=== PATIENT | female | born 1930 | race Caucasian/White ===

== ENCOUNTER 2018-10-08 17:08 | Inpatient (IN) ==
[2018-10-08] MEDS ORDERED: ALBUTEROL SULFATE 2.5 MG/0.5 ML VIAL.NEB IH ONE (17:25)
--- NOTE | 2018-10-08 17:26 | ERNOTE ---
Dyspnea - Date Date of Service: 10/08/18 - General Presenting Symptoms: shortness of breath, difficulty of breathing, wheezing Time Seen by Provider: 10/08/18 17:14 Source: [facility] records Exam Limitations: dementia - Immun/Allergies/Home Medications Immunizations: IMMUNIZATION HX Immunizations Up to Date Yes History of Influenza Vaccine Yes Hx Pneumococcal Vaccination Yes Allergies/Adverse Reactions: Allergies No Known Allergies Allergy (Verified 10/08/18 19:43) per [facility] sheets Home Medications: HOME MEDICATIONS RX: Furosemide [Lasix] 80 mg PO DAILY #1 tab 01/31/15 [Last Taken Unknown] RX: Polyethylene Glycol 3350 [Miralax] 17 gm PO DAILY #0 01/31/15 [Last Taken 01/22/15 09:00 17 gm] RX: Glucagon,Human Recombinant [Glucagen] 1 mg IJ PRN PRN 05/04/15 [Last Taken Unknown] acetaminophen 325 mg tablet 650 mg PO QID PRN tab 01/20/18 [Last Taken Unknown] levothyroxine 50 mcg capsule 50 mcg PO DAILY 01/20/18 [Last Taken Unknown] potassium chloride ER 10 mEq tablet,extended release(part/cryst) 10 meq PO BID 01/20/18 [Last Taken Unknown] Albuterol Sulfate [Albuterol Sulfate 2.5 MG/0.5ML] 2.5 mg INHALATION QID 10/08/18 [Last Taken Unknown] Cefuroxime Axetil [Cefuroxime] 500 mg PO BID 10/08/18 [Last Taken Unknown] Insulin Aspart [Novolog] 8 units SC TIDWM 10/08/18 [Last Taken Unknown] Insulin Detemir [Levemir] 13 units SC BID 10/08/18 [Last Taken Unknown] Magnesium Hydroxide [Milk Of Magnesia] 30 ml PO DAILY PRN 10/08/18 [Last Taken Unknown] Menthol [Biofreeze] 1 appl TOPICAL DAILY PRN 10/08/18 [Last Taken Unknown] RX: Pantoprazole Sodium 40 mg PO 1700 10/08/18 [Last Taken Unknown] - History of Present Illness Narrative: This is an 88-year-old female from [facility]. She is brought in for increasing dyspnea. Per report the patient has had 3 days of a cough as well as wheezing and shortness of breath. She has had a fever up to 101 by report. The patient has significant dementia and is unable to give any history. It was reported that the patient's distal pulses were weak today, but her systemic blood pressure at the time was noted to be in the 90s systolic. No other information or complaints are available. There is been no vomiting or diarrhea. No reports of abdominal pain or rashes. Uncertain of immunization status. Review of Systems - Narrative Narrative: Except as above in the history of present illness, the remainder of the review of systems is unobtainable due to the patient's condition and dementia Medical History (Last Reviewed 10/08/18 @ 19:44 by Christa Muñoz RN) Essential hypertension (Chronic) Onset Date: Unknown Difficulty in walking (Acute) Onset Date: Unknown Anxiety (Chronic) Onset Date: Unknown History of falling (Chronic) Onset Date: Unknown Alzheimer disease (Chronic) Onset Date: Unknown Depression (Chronic) Onset Date: Unknown Hypokalemia (Chronic) Onset Date: Unknown Hyperlipidemia due to dietary fat intake (Chronic) Onset Date: Unknown Chronic GERD Onset Date: Unknown Dementia Onset Date: Unknown Major depressive disorder Onset Date: Unknown Osteochondropathy Onset Date: Unknown Family History: Family History (Last Updated 10/08/18 @ 19:44 by Christa Muñoz RN) Other Unknown family medical history Social History: Preferred Language Hebrew Smoking Status Never smoker Abuse History No History of abuse Psych History No pertinent hx (Last Updated 09/26/18 @ 21:20 by Chip Clayton DO) No Social History Section defined Physical Exam - Physical Exam General Appearance: Present: other - Patient is awake and confused. She is tachypneic. She has somewhat labored breathing. Head Exam: Present: normal inspection, no evidence of injury Eye Exam: Normal inspection: bilateral Ears, Nose, Throat: Present: other Neck: Present: normal inspection - Slightly dry membranes. No pharyngeal erythema., other Respiratory: Present: other - Trachea is in the midline no significant adenopathy patient is tachypneic. Increased work of breathing using accessory muscles in the neck. Diffuse wheezing with poor air entry throughout. Frequent bronchitic sounding cough. Cardiovascular/Chest: Present: regular rate, rhythm, no murmur, normal peripheral pulses, other - Patient has palpable dorsalis pedis and radial pulses bilaterally, but when I felt these pulses the patient was actually Peripheral Pulses: N=norm/S=strong/W=weak/B=bound/A=absent: Radial (R): Normal, Radial (L): Normal, Dorsalis-pedis (R): Normal, Dorsalis-pedis (L): Normal Gastrointestinal/Abdominal: Present: normal bowel sounds, nontender, nondistended, soft Back Exam: Present: normal inspection Extremity Exam: Present: normal inspection, no edema Neurological Exam: Present: other - Patient is reported to be at her baseline mental state which is confused. Eyes open spontaneously. Noted to move all extremities. Skin Exam: Present: normal color, warm/dry, other - No rashes or lesions are noted Lymphatic Exam: Present: no adenopathy Departure Clinical Impression: Acute pulmonary edema, CHF (congestive heart failure), Sepsis - Departure Disposition: Still a patient Condition: Fair
[2018-10-08 17:35] LABS: Hematocrit 37.6 % (37.0-47.0); Hemoglobin 11.8 gm/dL (12.5-16.0); Mean Cell Volume 90.8 fl (78-100); Mean Corpuscular Hemoglobin 28.5 pg (27-31); Mean Corpuscular Hgb Conc 31.4 g/dl (32-36); Mean Platelet Volume 10.1 fl (8-12.5); Neutrophil # 12.9 K/mm3 (1.3-6.0); Neutrophil % 82.1 % (42-75.0); Platelet Count 331 K/mm3 (150-450); Red Blood Count 4.14 M/mm3 (4.2-5.4); Red Cell Distribution Width 14.3 % (11.5-14.0); White Blood Count 15.7 K/mm3 (4.0-10.5)
[2018-10-08 17:56] LABS: BUN/Creatinine Ratio 27.6 (9.0-21.6); Carbon Dioxide 24.8 mmol/L (24-32.6)
[2018-10-08 17:57] LABS: Albumin * 3.2 gm/dl (3.4-5.0); Anion Gap 17.2 mmol/L (6.8-13.8); Bilirubin, Total 0.3 mg/dL (0.0-1.1); Ca. Corrected For Albumin 9.2 mg/dL (8.4-10.2); Calcium * 8.9 mg/dL (7.9-10.9); Total Protein 7.4 gm/dL (6.2-8.2); Troponin I 0.043 ng/mL (0.00-0.10)
[2018-10-08] MEDS ORDERED: FUROSEMIDE 10 MG/ML VIAL IV ONE (18:26)
[2018-10-08] MEDS ORDERED: LEVOFLOXACIN 750 MG TABLET PO ONE (18:26)
[2018-10-08] MEDS ORDERED: FUROSEMIDE 10 MG/ML VIAL ONE (18:36)
[2018-10-08] MEDS ORDERED: LEVOFLOXACIN 250 MG TABLET ONE (18:37)
[2018-10-08] MEDS: PIPERACILLIN SODIUM/TAZOBACTAM 3.375 GM in DEXTROSE 5 % IN WATER 100 ML IV SCH ×2 (18:52)
[2018-10-08] MEDS ORDERED: NORMAL SALINE 1,000 ML IV PRN (19:01)
[2018-10-08] MEDS ORDERED: ACETAMINOPHEN 325 MG TABLET PO PRN (19:14)
[2018-10-08] MEDS ORDERED: MAGNESIUM HYDROXIDE 30 ML UDC PO PRN (19:14)
[2018-10-08] MEDS ORDERED: INSULIN ASPART 100 UNITS/ML VIAL SC SCH (19:45)
[2018-10-08] MEDS ORDERED: ALBUTEROL SULFATE 2.5 MG/0.5 ML VIAL.NEB IH SCH (21:00)
[2018-10-08] MEDS ORDERED: INSULIN DETEMIR 100 UNITS/ML VIAL SC SCH (21:00)
[2018-10-08] MEDS ORDERED: INSULIN LISPRO 100 UNITS/ML VIAL SC PRN (22:44)
[2018-10-08] MEDS: ACETAMINOPHEN 325 MG TABLET PO PRN (23:00)
[2018-10-08] MEDS: INSULIN LISPRO 100 UNITS/ML VIAL SC SCH (23:04)
[2018-10-08] MEDS ORDERED: ENOXAPARIN SODIUM 40 MG/0.4 ML SYRG SC SCH (23:30)
[2018-10-08] MEDS ORDERED: ALBUTEROL SULFATE 2.5 MG/0.5 ML VIAL.NEB IH PRN (23:32)
[2018-10-09] MEDS ORDERED: FUROSEMIDE 10 MG/ML VIAL IV ONE (01:07)
[2018-10-09] MEDS ORDERED: FUROSEMIDE 10 MG/ML VIAL ONE (01:10)
[2018-10-09] MEDS: ENOXAPARIN SODIUM 40 MG/0.4 ML SYRG SC SCH ×2 (01:16→20:37)
[2018-10-09] MEDS: PIPERACILLIN SODIUM/TAZOBACTAM 3.375 GM in DEXTROSE 5 % IN WATER 100 ML IV SCH ×6 (04:01→19:38)
[2018-10-09 05:09] LABS: Urine Bilirubin Negative (NEGATIVE); Urine Blood 50 /ul (NEGATIVE); Urine Ketone Negative (NEGATIVE); Urine Nitrite Positive (NEGATIVE); Urine Protein Negative (NEGATIVE); Urine Specific Gravity 1.015 SP.GR. (1.005-1.010); Urine Urobilinogen Normal (NORMAL)
[2018-10-09 05:10] LABS: Urine Amorphous Sediment Moderate - 2+ (NONE-FEW); Urine Appearance Cloudy (CLEAR); Urine Bacteria 3+; Urine Color Yellow
[2018-10-09] MEDS: ALBUTEROL SULFATE 2.5 MG/0.5 ML VIAL.NEB IH SCH ×4 (06:05→18:21)
[2018-10-09 06:20] LABS: Hematocrit 37.7 % (37.0-47.0); Hemoglobin 11.5 gm/dL (12.5-16.0); Mean Cell Volume 91.7 fl (78-100); Mean Corpuscular Hgb Conc 30.5 g/dl (32-36); Mean Platelet Volume 10.5 fl (8-12.5); Neutrophil # 8.7 K/mm3 (1.3-6.0); Neutrophil % 79.4 % (42-75.0); Platelet Count 271 K/mm3 (150-450); Red Blood Count 4.11 M/mm3 (4.2-5.4); Red Cell Distribution Width 14.5 % (11.5-14.0); White Blood Count 10.9 K/mm3 (4.0-10.5)
[2018-10-09 06:36] LABS: Anion Gap 14.9 mmol/L (6.8-13.8); BUN/Creatinine Ratio 26.8 (9.0-21.6); Bilirubin, Total 0.4 mg/dL (0.0-1.1); Ca. Corrected For Albumin 9.5 mg/dL (8.4-10.2); Carbon Dioxide 24.2 mmol/L (24-32.6); Potassium 4.1 mmol/L (3.4-4.6); Total Protein 7.2 gm/dL (6.2-8.2)
[2018-10-09] MEDS: LEVOTHYROXINE SODIUM 50 MCG TABLET PO SCH (08:01)
[2018-10-09] MEDS: ACETAMINOPHEN 325 MG TABLET PO PRN (08:09)
[2018-10-09] MEDS: POLYETHYLENE GLYCOL 3350 17 GM PACKET PO SCH (08:13)
[2018-10-09] MEDS ORDERED: INSULIN ASPART 100 UNITS/ML VIAL SC SCH (09:00)
[2018-10-09] MEDS ORDERED: INSULIN LISPRO 100 UNITS/ML VIAL SC SCH (09:00)
--- NOTE | 2018-10-09 12:21 | HP ---
Chief Complaint - Chief Complaint Date of Service: 10/08/18 Time of Service: 17:50 Chief Complaint: Cough, dyspnea, fever, altered mental status with diminished alertness. History of Present Illness: Paz Alcantar is an 88-year-old female well known to me as a resident at [facility]. For the previous 48 hours she had increasing congestion and coughing. I had started her on oral Bactrim and breathing treatments but she continued to worsen at the [facility]. The family requested she be brought to ER for evaluation. She was evaluated in our ER and found to have signs and symptoms of pneumonia and sepsis with tachycardia, tachypnea, and an elevated lactic acid level. Also has a 15,700 white count. Chest x-ray reveals probable infiltrates bilaterally. She meets sepsis criteria. She has severe sepsis but not septic shock. She will be admitted for IV antibiotics, management of blood sugars as she has a long- standing insulin-dependent diabetic and blood sugars have been elevated with this infection. We will do primarily supportive measures. The family has a DNR order on the [facility] chart that when queried here they want everything done shy of intubation to be done. Medical History (Last Reviewed 10/08/18 @ 19:44 by Christa Muñoz RN) Essential hypertension (Chronic) Onset Date: Unknown Difficulty in walking (Acute) Onset Date: Unknown Anxiety (Chronic) Onset Date: Unknown History of falling (Chronic) Onset Date: Unknown Alzheimer disease (Chronic) Onset Date: Unknown Depression (Chronic) Onset Date: Unknown Hypokalemia (Chronic) Onset Date: Unknown Hyperlipidemia due to dietary fat intake (Chronic) Onset Date: Unknown Chronic GERD Onset Date: Unknown Dementia Onset Date: Unknown Major depressive disorder Onset Date: Unknown Osteochondropathy Onset Date: Unknown Family History: Family History (Last Updated 10/08/18 @ 19:44 by Christa Muñoz RN) Other Unknown family medical history Social History: Patient Lives/Resources [facility] Utilized Occupation retired Preferred Language Arabic Do you have any jainism or No cultural preference? Smoking Status Never smoker Have you smoked in the past 12 No months Do you dip or chew tobacco No Abuse History No History of abuse Psych History No pertinent hx Alcohol Use none Drug Use none (Last Updated 09/26/18 @ 21:20 by Chip Clayton DO) No Social History Section defined Review Of Systems (GEN) - Review of Systems Generalized/Overall Review: Present: Weakness, Fever, Malaise EENTM: Present: No Symptoms Reported Respiratory: Present: Cough, Shortness of Breath, Stridor, Wheezing Cardiac: Present: No Symptoms Reported, Other Abdominal: Present: No Symptoms Reported, Nausea, Vomiting Genitourinary: Present: No Symptoms Reported Musculoskeletal: Present: No Symptoms Reported Neurological: Present: Pre-existing Deficit - Advanced dementia Skin: Present: No Symptoms Reported, Dryness Endocrine: Present: No Symptoms Reported Immunizations: IMMUNIZATION HX Immunizations Up to Date Yes History of Influenza Vaccine Yes Hx Pneumococcal Vaccination Yes Allergies/Adverse Reactions: Allergies Allergy/AdvReac Type Severity Reaction Status Date / Time No Known Allergies Allergy Verified 10/08/18 19:43 Home Medications: HOME MEDICATIONS Furosemide [Lasix] 80 mg PO DAILY #1 tab 01/31/15 [Last Taken Unknown] Polyethylene Glycol 3350 [Miralax] 17 gm PO DAILY #0 01/31/15 [Last Taken 01/22/15 09:00 17 gm] Glucagon,Human Recombinant [Glucagen] 1 mg IJ PRN PRN 05/04/15 [Last Taken Unknown] acetaminophen 325 mg tablet 650 mg PO QID PRN tab 01/20/18 [Last Taken Unknown] levothyroxine 50 mcg capsule 50 mcg PO DAILY 01/20/18 [Last Taken Unknown] potassium chloride ER 10 mEq tablet,extended release(part/cryst) 10 meq PO BID 01/20/18 [Last Taken Unknown] Albuterol Sulfate [Albuterol Sulfate 2.5 MG/0.5ML] 2.5 mg INHALATION QID 10/08/18 [Last Taken Unknown] Cefuroxime Axetil [Cefuroxime] 500 mg PO BID 10/08/18 [Last Taken Unknown] Insulin Aspart [Novolog] 8 units SC TIDWM 10/08/18 [Last Taken Unknown] Insulin Detemir [Levemir] 13 units SC BID 10/08/18 [Last Taken Unknown] Magnesium Hydroxide [Milk Of Magnesia] 30 ml PO DAILY PRN 10/08/18 [Last Taken Unknown] Menthol [Biofreeze] 1 appl TOPICAL DAILY PRN 10/08/18 [Last Taken Unknown] Pantoprazole Sodium 40 mg PO 1700 10/08/18 [Last Taken Unknown] Exam - Exam Vital Signs: Vital Signs - Last Taken Temp 37.4 C 10/09/18 10:14 Pulse 80 03/30/19 10:32 Resp 27 H 10/09/18 10:32 BP 127/85 10/09/18 10:14 Pulse Ox 95 10/09/18 10:23 Constitutional: Present: Acute distress, Moderate distress, Lethargic, Somnolent, Elderly, Thin and frail ENT Exam: Present: normal ENT inspection, pharynx normal Eye Exam: bilateral eye: normal inspection, PERRL, EOMI Neck: Present: non-tender, supple, normal inspection, trachea midline, limited range of motion Back Exam: Present: normal inspection, no CVA tenderness, no vertebral tenderness Respiratory: Present: chest non-tender, respiratory distress, decreased breath sounds, accessory muscle use, rhonchi, stridor, wheezing, expiration (prolonged), other - tachypnea maura. when febrile RR 38 manual. Cardiovascular/Chest: Present: normal peripheral pulses, tachycardia - when febrile Peripheral Pulses: carotid (R): 2+, carotid (L): 2+, radial (R): 2+, radial (L): 2+ Abdomen: Present: Normal bowel sounds, soft, nontender, nondistended, no rebound tenderness /Rectal: Present: Exam deferred, External genitalia normal, discharge Extremity: Present: normal range of motion, non-tender, normal inspection, no pedal edema, no calf tenderness, normal capillary refill Skin Exam: Present: normal color, warm/dry, no cyanosis Lymphatic: Present: no adenopathy, axilla node tender (R) Neurologic: Present: measuring machine tender II-XII nml as tested, normal cerebellar test, disoriented x 3. Absent: abnormal gait - not ambulatory Appearance: Present: appropriate appearance, impaired insight, impaired recent memory, impaired remote memory Eye contact: Present: other - speech is confabulation and uninteligible. Diagnostic Studies: Abnormal Lab Results 10/08/18 10/08/18 10/08/18 Range/Units 17:30 17:30 17:30 WBC 15.7 H (4.0-10.5) K/mm3 RBC 4.14 L (4.2-5.4) M/mm3 Hgb 11.8 L (12.5-16.0) gm/dL MCHC 31.4 L (32-36) g/dl RDW 14.3 H (11.5-14.0) % Immature Gran # (Auto) 0.07 H (0.000-0.0310) K/mm3 Neutrophils % 82.1 H (42-75.0) % Lymphocytes % 10.9 L (20-51) % Monocytes % (0.0-9) % Neutrophils # 12.9 H (1.3-6.0) K/mm3 Lymphocytes # (1.5-3.5) k/mm3 pCO2 (32.0-45.0) mmHg pO2 (83.0-108.0) mmHg HCO3 (21.0-28.0) mmol/L Total CO2 (19.0-24.0) mmol/L Base Excess (-2.0-3.0) mmol/L ABG O2 Sat (Measured) (94.0-98.0) % Plasma Sodium 143 H (130-142) mmol/L Anion Gap 17.2 H (6.8-13.8) mmol/L BUN 37 H D (3-23) mg/dL Creatinine (0.4-1.4) mg/dL Est GFR (Non-Af Amer) 40 L D (60-130) mL/min BUN/Creatinine Ratio 27.6 H (9.0-21.6) Random Glucose 151 H (70-110) mg/dL Lactic Acid, Venous 3.4 H* (0.4-2.0) mmol/L AST 49 H (0-48) U/L B-Natriuretic Peptide 5523 H (5-550) pg/mL Albumin 3.2 L (3.4-5.0) gm/dl Procalcitonin (0.05-0.50) ng/mL Urine Glucose (UA) (NEGATIVE) mg/dL Urine Blood (NEGATIVE) /ul Urine Nitrate (NEGATIVE) Ur Leukocyte Esterase (NEGATIVE) /ul Urine RBC (0-5) /hpf Urine WBC (0-5) /hpf Amorphous Sediment (NONE-FEW) Urine Bacteria (NONE) 10/08/18 10/09/18 10/09/18 Range/Units 20:40 00:40 01:05 WBC (4.0-10.5) K/mm3 RBC (4.2-5.4) M/mm3 Hgb (12.5-16.0) gm/dL MCHC (32-36) g/dl RDW (11.5-14.0) % Immature Gran # (Auto) (0.000-0.0310) K/mm3 Neutrophils % (42-75.0) % Lymphocytes % (20-51) % Monocytes % (0.0-9) % Neutrophils # (1.3-6.0) K/mm3 Lymphocytes # (1.5-3.5) k/mm3 pCO2 26.5 L (32.0-45.0) mmHg pO2 54.9 L (83.0-108.0) mmHg HCO3 18.1 L (21.0-28.0) mmol/L Total CO2 18.9 L (19.0-24.0) mmol/L Base Excess -4.5 L (-2.0-3.0) mmol/L ABG O2 Sat (Measured) 90.6 L (94.0-98.0) % Plasma Sodium (130-142) mmol/L Anion Gap (6.8-13.8) mmol/L BUN (3-23) mg/dL Creatinine (0.4-1.4) mg/dL Est GFR (Non-Af Amer) (60-130) mL/min BUN/Creatinine Ratio (9.0-21.6) Random Glucose (70-110) mg/dL Lactic Acid, Venous 3.2 H* 4.3 H* (0.4-2.0) mmol/L AST (0-48) U/L B-Natriuretic Peptide (5-550) pg/mL Albumin (3.4-5.0) gm/dl Procalcitonin (0.05-0.50) ng/mL Urine Glucose (UA) (NEGATIVE) mg/dL Urine Blood (NEGATIVE) /ul Urine Nitrate (NEGATIVE) Ur Leukocyte Esterase (NEGATIVE) /ul Urine RBC (0-5) /hpf Urine WBC (0-5) /hpf Amorphous Sediment (NONE-FEW) Urine Bacteria (NONE) 10/09/18 10/09/18 10/09/18 Range/Units 02:05 03:30 06:15 WBC 10.9 H D (4.0-10.5) K/mm3 RBC 4.11 L (4.2-5.4) M/mm3 Hgb 11.5 L (12.5-16.0) gm/dL MCHC 30.5 L (32-36) g/dl RDW 14.5 H (11.5-14.0) % Immature Gran # (Auto) 0.04 H (0.000-0.0310) K/mm3 Neutrophils % 79.4 H (42-75.0) % Lymphocytes % 10.6 L (20-51) % Monocytes % 9.4 H (0.0-9) % Neutrophils # 8.7 H (1.3-6.0) K/mm3 Lymphocytes # 1.16 L (1.5-3.5) k/mm3 pCO2 (32.0-45.0) mmHg pO2 (83.0-108.0) mmHg HCO3 (21.0-28.0) mmol/L Total CO2 (19.0-24.0) mmol/L Base Excess (-2.0-3.0) mmol/L ABG O2 Sat (Measured) (94.0-98.0) % Plasma Sodium (130-142) mmol/L Anion Gap (6.8-13.8) mmol/L BUN (3-23) mg/dL Creatinine (0.4-1.4) mg/dL Est GFR (Non-Af Amer) (60-130) mL/min BUN/Creatinine Ratio (9.0-21.6) Random Glucose 239 H D (70-110) mg/dL Lactic Acid, Venous (0.4-2.0) mmol/L AST (0-48) U/L B-Natriuretic Peptide (5-550) pg/mL Albumin (3.4-5.0) gm/dl Procalcitonin (0.05-0.50) ng/mL Urine Glucose (UA) 100 H (NEGATIVE) mg/dL Urine Blood 50 H (NEGATIVE) /ul Urine Nitrate Positive H (NEGATIVE) Ur Leukocyte Esterase 100 H (NEGATIVE) /ul Urine RBC 5-10 H (0-5) /hpf Urine WBC 10-25 H (0-5) /hpf Amorphous Sediment Moderate - 2+ H (NONE-FEW) Urine Bacteria 3+ H (NONE) 10/09/18 10/09/18 Range/Units 06:15 06:15 WBC (4.0-10.5) K/mm3 RBC (4.2-5.4) M/mm3 Hgb (12.5-16.0) gm/dL MCHC (32-36) g/dl RDW (11.5-14.0) % Immature Gran # (Auto) (0.000-0.0310) K/mm3 Neutrophils % (42-75.0) % Lymphocytes % (20-51) % Monocytes % (0.0-9) % Neutrophils # (1.3-6.0) K/mm3 Lymphocytes # (1.5-3.5) k/mm3 pCO2 (32.0-45.0) mmHg pO2 (83.0-108.0) mmHg HCO3 (21.0-28.0) mmol/L Total CO2 (19.0-24.0) mmol/L Base Excess (-2.0-3.0) mmol/L ABG O2 Sat (Measured) (94.0-98.0) % Plasma Sodium (130-142) mmol/L Anion Gap 14.9 H (6.8-13.8) mmol/L BUN 38 H (3-23) mg/dL Creatinine 1.42 H (0.4-1.4) mg/dL Est GFR (Non-Af Amer) 37 L (60-130) mL/min BUN/Creatinine Ratio 26.8 H (9.0-21.6) Random Glucose 218 H (70-110) mg/dL Lactic Acid, Venous (0.4-2.0) mmol/L AST 60 H (0-48) U/L B-Natriuretic Peptide (5-550) pg/mL Albumin 3.0 L (3.4-5.0) gm/dl Procalcitonin 1.65 H (0.05-0.50) ng/mL Urine Glucose (UA) (NEGATIVE) mg/dL Urine Blood (NEGATIVE) /ul Urine Nitrate (NEGATIVE) Ur Leukocyte Esterase (NEGATIVE) /ul Urine RBC (0-5) /hpf Urine WBC (0-5) /hpf Amorphous Sediment (NONE-FEW) Urine Bacteria (NONE) Laboratory Results WBC 10.9 K/mm3 (4.0-10.5) H D 10/09/18 06:15 RBC 4.11 M/mm3 (4.2-5.4) L 10/09/18 06:15 Hgb 11.5 gm/dL (12.5-16.0) L 10/09/18 06:15 Hct 37.7 % (37.0-47.0) 10/09/18 06:15 MCV 91.7 fl (78-100) 10/09/18 06:15 MCH 28.0 pg (27-31) 10/09/18 06:15 MCHC 30.5 g/dl (32-36) L 10/09/18 06:15 RDW 14.5 % (11.5-14.0) H 10/09/18 06:15 Plt Count 271 K/mm3 (150-450) 10/09/18 06:15 MPV 10.5 fl (8-12.5) 10/09/18 06:15 Immature Gran % (Auto) 0.40 % (0.001-0.429) 10/09/18 06:15 Immature Gran # (Auto) 0.04 K/mm3 (0.000-0.0310) H 10/09/18 06:15 Neutrophils % 79.4 % (42-75.0) H 10/09/18 06:15 Lymphocytes % 10.6 % (20-51) L 10/09/18 06:15 Monocytes % 9.4 % (0.0-9) H 10/09/18 06:15 Eosinophils % 0.0 % (0.0-3.0) 10/09/18 06:15 Basophils % 0.2 % (0.0-1.0) 10/09/18 06:15 Nucleated RBC % 0.0 k/mm3 (0-1) 10/09/18 06:15 Neutrophils # 8.7 K/mm3 (1.3-6.0) H 10/09/18 06:15 Lymphocytes # 1.16 k/mm3 (1.5-3.5) L 10/09/18 06:15 Monocytes # 1.0 k/mm3 (0.0-1.0) 10/09/18 06:15 Eosinophils # 0.0 k/mm3 (0.0-0.7) 10/09/18 06:15 Absolute Basophils 0.0 k/mm3 (0.0-0.1) 10/09/18 06:15 pCO2 26.5 mmHg (32.0-45.0) L 10/09/18 01:05 pO2 54.9 mmHg (83.0-108.0) L 10/09/18 01:05 HCO3 18.1 mmol/L (21.0-28.0) L 10/09/18 01:05 Total CO2 18.9 mmol/L (19.0-24.0) L 10/09/18 01:05 Base Excess -4.5 mmol/L (-2.0-3.0) L 10/09/18 01:05 ABG pH 7.40 (7.35-7.45) 10/09/18 01:05 ABG O2 Sat (Measured) 90.6 % (94.0-98.0) L 10/09/18 01:05 Sodium 140 mmol/L (132-142) 10/09/18 06:15 Plasma Sodium 142 mmol/L (130-142) 10/09/18 06:15 Potassium 4.1 mmol/L (3.4-4.6) 10/09/18 06:15 Chloride 105 mmol/L (97-106) 10/09/18 06:15 Carbon Dioxide 24.2 mmol/L (24-32.6) 10/09/18 06:15 Anion Gap 14.9 mmol/L (6.8-13.8) H 10/09/18 06:15 BUN 38 mg/dL (3-23) H 10/09/18 06:15 Creatinine 1.42 mg/dL (0.4-1.4) H 10/09/18 06:15 Est GFR (Non-Af Amer) 37 mL/min (60-130) L 10/09/18 06:15 BUN/Creatinine Ratio 26.8 (9.0-21.6) H 10/09/18 06:15 Random Glucose 218 mg/dL (70-110) H 10/09/18 06:15 Lactic Acid, Venous 1.3 mmol/L (0.4-2.0) 10/09/18 06:15 Calcium 9.0 mg/dL (7.9-10.9) 10/09/18 06:15 Calcium Adj for Albumin 9.5 mg/dL (8.4-10.2) 10/09/18 06:15 Total Bilirubin 0.4 mg/dL (0.0-1.1) 10/09/18 06:15 AST 60 U/L (0-48) H 10/09/18 06:15 ALT 22 U/L (19-67) 10/09/18 06:15 Alkaline Phosphatase 101 U/L (50-170) 10/09/18 06:15 Troponin I 0.043 ng/mL (0.00-0.10) 10/08/18 17:30 B-Natriuretic Peptide 5523 pg/mL (5-550) H 10/08/18 17:30 Total Protein 7.2 gm/dL (6.2-8.2) 10/09/18 06:15 Albumin 3.0 gm/dl (3.4-5.0) L 10/09/18 06:15 Procalcitonin 1.65 ng/mL (0.05-0.50) H 10/09/18 06:15 Urine Color Yellow 10/09/18 03:30 Urine Appearance Cloudy (CLEAR) 10/09/18 03:30 Urine pH 6.0 pH (5.0-7.0) 10/09/18 03:30 Ur Specific [place] 1.015 SP.GR. (1.005-1.010) 10/09/18 03:30 Urine Protein Negative mg/dL (NEGATIVE) 10/09/18 03:30 Urine Glucose (UA) 100 mg/dL (NEGATIVE) H 10/09/18 03:30 Urine Ketones Negative mg/dL (NEGATIVE) 10/09/18 03:30 Urine Blood 50 /ul (NEGATIVE) H 10/09/18 03:30 Urine Nitrate Positive (NEGATIVE) H 10/09/18 03:30 Urine Bilirubin Negative mg/dl (NEGATIVE) 10/09/18 03:30 Urine Urobilinogen Normal EU/dl (NORMAL) 10/09/18 03:30 Ur Leukocyte Esterase 100 /ul (NEGATIVE) H 10/09/18 03:30 Urine RBC 5-10 /hpf (0-5) H 10/09/18 03:30 Urine WBC 10-25 /hpf (0-5) H 10/09/18 03:30 Ur Epithelial Cells 0-5 /hpf (0-5) 10/09/18 03:30 Amorphous Sediment Moderate - 2+ (NONE-FEW) H 10/09/18 03:30 Urine Bacteria 3+ (NONE) H 10/09/18 03:30 Urine Culture Comments Culture to follow 10/09/18 03:30 Influenza Type A Ag Negative (NEGATIVE) 10/08/18 17:33 Influenza Type B Ag Negative (NEGATIVE) 10/08/18 17:33 Assessment/Plan - Narrative Narrative: Dorsal be admitted and treated for sepsis. Vital signs will be monitored frequently. She will be given IV antibiotics and cautious administration of insulin. Lactic acid level will be repeated routinely. - Assessment/Plan (1) Severe sepsis Problem: Acute (2) SIRS (systemic inflammatory response syndrome) Problem: Acute (3) Pneumonia Problem: Acute Qualifiers: Pneumonia type: due to unspecified organism Lung location: unspecified part of lung (4) Alzheimer's dementia Problem: Chronic (5) Diabetes mellitus Problem: Chronic Qualifiers: Diabetes mellitus type: type 2 Diabetes mellitus terminal clerk insulin use: with terminal clerk use Chronic kidney disease stage: stage 3 (moderate)
--- NOTE | 2018-10-09 12:34 | PN ---
Subjective - Date and Time Seen Date: 10/09/18 Time: 09:30 Subjective Narrative: Paz Alcantar was admitted through ER last evening with diagnosis of pneumonia, SIRS, severe sepsis, uncontrolled IDDM. She is very lethargic in the emergency room. She has advanced Alzheimer's dementia and her speech is confabulated unintelligible. She cannot communicate verbally. This morning she is more alert although completely disoriented. She appears mildly anxious. She's had a stormy night with fever and tachypnea with respiratory rate in the 38-40 breaths per minute range. Fever was to 39 and she has had some tachycardia associated with that. Her lactic acid is not improved since starting to treat her sepsis and in fact has risen to 4.35 this morning. Blood gases were done last night and pH was normal at 7.40. Bicarbonate was slightly low at 18 and PCO2 is slightly low due to her tachypnea. Her oxygen sats on oxygen have been in the 96% range. She is not retaining CO2. In the absence of DKA or shunting it appears the cause for her tachypnea remains sepsis. We will continue with Zosyn and Levaquin compensated for a GFR of 40. Objective - Review of Systems Generalized/Overall Review: Reports: Weakness, Malaise EENTM: Reports: No Symptoms Reported Respiratory: Reports: Cough, Shortness of Breath, Stridor, Wheezing Cardiac: Reports: No Symptoms Reported Abdominal: Reports: No Symptoms Reported Genitourinary Symptoms: Reports: Incontinent - Rice catheter placed last night to monitor urine output Musculoskeletal Complaints: Reports: No Symptoms Reported Neurological: Reports: No Symptoms Reported Skin: Reports: No Symptoms Reported Endocrine: Reports: No Symptoms Reported - Vitals Vitals: Last Vital Signs Temp 37.4 C 10/09/18 10:14 Pulse 80 10/09/18 10:32 Resp 27 H 10/09/18 10:32 BP 127/85 10/09/18 10:14 Pulse Ox 95 10/09/18 10:23 - Abnormal Lab Findings Abnormal Lab Findings: Abnormal Lab Results 10/08/18 10/08/18 10/08/18 Range/Units 17:30 17:30 17:30 WBC 15.7 H (4.0-10.5) K/mm3 RBC 4.14 L (4.2-5.4) M/mm3 Hgb 11.8 L (12.5-16.0) gm/dL MCHC 31.4 L (32-36) g/dl RDW 14.3 H (11.5-14.0) % Immature Gran # (Auto) 0.07 H (0.000-0.0310) K/mm3 Neutrophils % 82.1 H (42-75.0) % Lymphocytes % 10.9 L (20-51) % Monocytes % (0.0-9) % Neutrophils # 12.9 H (1.3-6.0) K/mm3 Lymphocytes # (1.5-3.5) k/mm3 pCO2 (32.0-45.0) mmHg pO2 (83.0-108.0) mmHg HCO3 (21.0-28.0) mmol/L Total CO2 (19.0-24.0) mmol/L Base Excess (-2.0-3.0) mmol/L ABG O2 Sat (Measured) (94.0-98.0) % Plasma Sodium 143 H (130-142) mmol/L Anion Gap 17.2 H (6.8-13.8) mmol/L BUN 37 H D (3-23) mg/dL Creatinine (0.4-1.4) mg/dL Est GFR (Non-Af Amer) 40 L D (60-130) mL/min BUN/Creatinine Ratio 27.6 H (9.0-21.6) Random Glucose 151 H (70-110) mg/dL Lactic Acid, Venous 3.4 H* (0.4-2.0) mmol/L AST 49 H (0-48) U/L B-Natriuretic Peptide 5523 H (5-550) pg/mL Albumin 3.2 L (3.4-5.0) gm/dl Procalcitonin (0.05-0.50) ng/mL Urine Glucose (UA) (NEGATIVE) mg/dL Urine Blood (NEGATIVE) /ul Urine Nitrate (NEGATIVE) Ur Leukocyte Esterase (NEGATIVE) /ul Urine RBC (0-5) /hpf Urine WBC (0-5) /hpf Amorphous Sediment (NONE-FEW) Urine Bacteria (NONE) 10/08/18 10/09/18 10/09/18 Range/Units 20:40 00:40 01:05 WBC (4.0-10.5) K/mm3 RBC (4.2-5.4) M/mm3 Hgb (12.5-16.0) gm/dL MCHC (32-36) g/dl RDW (11.5-14.0) % Immature Gran # (Auto) (0.000-0.0310) K/mm3 Neutrophils % (42-75.0) % Lymphocytes % (20-51) % Monocytes % (0.0-9) % Neutrophils # (1.3-6.0) K/mm3 Lymphocytes # (1.5-3.5) k/mm3 pCO2 26.5 L (32.0-45.0) mmHg pO2 54.9 L (83.0-108.0) mmHg HCO3 18.1 L (21.0-28.0) mmol/L Total CO2 18.9 L (19.0-24.0) mmol/L Base Excess -4.5 L (-2.0-3.0) mmol/L ABG O2 Sat (Measured) 90.6 L (94.0-98.0) % Plasma Sodium (130-142) mmol/L Anion Gap (6.8-13.8) mmol/L BUN (3-23) mg/dL Creatinine (0.4-1.4) mg/dL Est GFR (Non-Af Amer) (60-130) mL/min BUN/Creatinine Ratio (9.0-21.6) Random Glucose (70-110) mg/dL Lactic Acid, Venous 3.2 H* 4.3 H* (0.4-2.0) mmol/L AST (0-48) U/L B-Natriuretic Peptide (5-550) pg/mL Albumin (3.4-5.0) gm/dl Procalcitonin (0.05-0.50) ng/mL Urine Glucose (UA) (NEGATIVE) mg/dL Urine Blood (NEGATIVE) /ul Urine Nitrate (NEGATIVE) Ur Leukocyte Esterase (NEGATIVE) /ul Urine RBC (0-5) /hpf Urine WBC (0-5) /hpf Amorphous Sediment (NONE-FEW) Urine Bacteria (NONE) 10/09/18 10/09/18 10/09/18 Range/Units 02:05 03:30 06:15 WBC 10.9 H D (4.0-10.5) K/mm3 RBC 4.11 L (4.2-5.4) M/mm3 Hgb 11.5 L (12.5-16.0) gm/dL MCHC 30.5 L (32-36) g/dl RDW 14.5 H (11.5-14.0) % Immature Gran # (Auto) 0.04 H (0.000-0.0310) K/mm3 Neutrophils % 79.4 H (42-75.0) % Lymphocytes % 10.6 L (20-51) % Monocytes % 9.4 H (0.0-9) % Neutrophils # 8.7 H (1.3-6.0) K/mm3 Lymphocytes # 1.16 L (1.5-3.5) k/mm3 pCO2 (32.0-45.0) mmHg pO2 (83.0-108.0) mmHg HCO3 (21.0-28.0) mmol/L Total CO2 (19.0-24.0) mmol/L Base Excess (-2.0-3.0) mmol/L ABG O2 Sat (Measured) (94.0-98.0) % Plasma Sodium (130-142) mmol/L Anion Gap (6.8-13.8) mmol/L BUN (3-23) mg/dL Creatinine (0.4-1.4) mg/dL Est GFR (Non-Af Amer) (60-130) mL/min BUN/Creatinine Ratio (9.0-21.6) Random Glucose 239 H D (70-110) mg/dL Lactic Acid, Venous (0.4-2.0) mmol/L AST (0-48) U/L B-Natriuretic Peptide (5-550) pg/mL Albumin (3.4-5.0) gm/dl Procalcitonin (0.05-0.50) ng/mL Urine Glucose (UA) 100 H (NEGATIVE) mg/dL Urine Blood 50 H (NEGATIVE) /ul Urine Nitrate Positive H (NEGATIVE) Ur Leukocyte Esterase 100 H (NEGATIVE) /ul Urine RBC 5-10 H (0-5) /hpf Urine WBC 10-25 H (0-5) /hpf Amorphous Sediment Moderate - 2+ H (NONE-FEW) Urine Bacteria 3+ H (NONE) 03/30/19 03/30/19 Range/Units 06:15 06:15 WBC (4.0-10.5) K/mm3 RBC (4.2-5.4) M/mm3 Hgb (12.5-16.0) gm/dL MCHC (32-36) g/dl RDW (11.5-14.0) % Immature Gran # (Auto) (0.000-0.0310) K/mm3 Neutrophils % (42-75.0) % Lymphocytes % (20-51) % Monocytes % (0.0-9) % Neutrophils # (1.3-6.0) K/mm3 Lymphocytes # (1.5-3.5) k/mm3 pCO2 (32.0-45.0) mmHg pO2 (83.0-108.0) mmHg HCO3 (21.0-28.0) mmol/L Total CO2 (19.0-24.0) mmol/L Base Excess (-2.0-3.0) mmol/L ABG O2 Sat (Measured) (94.0-98.0) % Plasma Sodium (130-142) mmol/L Anion Gap 14.9 H (6.8-13.8) mmol/L BUN 38 H (3-23) mg/dL Creatinine 1.42 H (0.4-1.4) mg/dL Est GFR (Non-Af Amer) 37 L (60-130) mL/min BUN/Creatinine Ratio 26.8 H (9.0-21.6) Random Glucose 218 H (70-110) mg/dL Lactic Acid, Venous (0.4-2.0) mmol/L AST 60 H (0-48) U/L B-Natriuretic Peptide (5-550) pg/mL Albumin 3.0 L (3.4-5.0) gm/dl Procalcitonin 1.65 H (0.05-0.50) ng/mL Urine Glucose (UA) (NEGATIVE) mg/dL Urine Blood (NEGATIVE) /ul Urine Nitrate (NEGATIVE) Ur Leukocyte Esterase (NEGATIVE) /ul Urine RBC (0-5) /hpf Urine WBC (0-5) /hpf Amorphous Sediment (NONE-FEW) Urine Bacteria (NONE) - EKG/Xray Findings EKG: no ST T wave changes, supravent. tachycardia EKG read: Reviewed by me Interpretation: Reviewed by me - Exam Constitutional: Present: Alert, Cooperative, Well developed, Well nourished, Elderly, Thin and frail. Absent: Oriented x3 ENT Exam: Present: normal ENT inspection Neck: Present: non-tender, full range of motion, supple Breasts: Present: Exam deferred Respiratory: Present: decreased breath sounds, accessory muscle use, rales, rhonchi, stridor, wheezing, expiration (prolonged), other - Tachypnea Cardiovascular/Chest: Present: normal peripheral pulses, tachycardia Abdomen: Present: Normal bowel sounds, soft, nontender, nondistended, no rebound tenderness, no hepatospenomegaly /Rectal: Present: Other - Incontinent of urine Extremity: Present: non-tender, normal inspection, no pedal edema, no calf tenderness, normal capillary refill, pelvis stable. Absent: normal range of motion, pedal edema Skin Exam: Present: warm/dry, no cyanosis, pallor Lymphatic: Present: no adenopathy Neurologic: Present: inbound call center agent II-XII nml as tested, normal cerebellar test, no motor/sensory deficits, alert, normal mood/affect, oriented x 3 Appearance: Present: appropriate appearance, impaired insight, impaired recent memory, impaired remote memory Eye contact: Present: cooperative, good eye contact, refused to answer - Unable to respond verbally. Absent: normal speech Thoughts: Present: normal thought pattern, no apparent hallucination Cauti Physician Documentation - Urinary Catheter Management Urethral (Rice) Urethral Indwelling: Yes Reason for Continuing Indwelling Catheter: Measure accurate output Date of Insertion: 10/09/18 Time of Insertion: 02:21 Assessment/Plan - Problems/Diagnosis (1) Severe sepsis Problem: Acute (2) SIRS (systemic inflammatory response syndrome) Problem: Acute (3) Pneumonia Problem: Acute Qualifiers: Pneumonia type: due to unspecified organism Lung location: unspecified part of lung (4) Alzheimer's dementia Problem: Chronic (5) Diabetes mellitus Problem: Chronic Qualifiers: Diabetes mellitus type: type 2 Diabetes mellitus oil heaterman insulin use: with shelter use Chronic kidney disease stage: stage 3 (moderate)
[2018-10-09] MEDS: INSULIN LISPRO 100 UNITS/ML VIAL SC SCH ×4 (13:53→16:51)
[2018-10-09] MEDS: INSULIN DETEMIR 100 UNITS/ML VIAL SC SCH ×2 (13:55→21:43)
[2018-10-09] MEDS ORDERED: INSULIN LISPRO 100 UNITS/ML VIAL SC ONE ×2 (15:10→18:00)
[2018-10-09] MEDS: PANTOPRAZOLE SODIUM 40 MG TABLET.EC PO SCH (16:51)
[2018-10-09] MEDS ORDERED: DEXTROSE 50%-WATER 50 ML SYRG ONE (21:37)
[2018-10-09] MEDS ORDERED: DEXTROSE 50%-WATER 50 ML SYRG IV ONE (21:43)
[2018-10-10] MEDS: PIPERACILLIN SODIUM/TAZOBACTAM 3.375 GM in DEXTROSE 5 % IN WATER 100 ML IV SCH ×6 (02:49→18:53)
[2018-10-10] MEDS: ALBUTEROL SULFATE 2.5 MG/0.5 ML VIAL.NEB IH SCH ×3 (06:02→19:02)
[2018-10-10] MEDS: LEVOTHYROXINE SODIUM 50 MCG TABLET PO SCH (06:49)
[2018-10-10] MEDS: ACETAMINOPHEN 325 MG TABLET PO PRN (06:53)
[2018-10-10] MEDS: POLYETHYLENE GLYCOL 3350 17 GM PACKET PO SCH (08:35)
[2018-10-10] MEDS: INSULIN LISPRO 100 UNITS/ML VIAL SC SCH ×3 (08:37→17:55)
[2018-10-10] MEDS: INSULIN DETEMIR 100 UNITS/ML VIAL SC SCH ×2 (10:11→20:22)
--- NOTE | 2018-10-10 11:56 | PN ---
Subjective - Date and Time Seen Date: 10/10/18 Time: 10:30 Objective - Review of Systems Generalized/Overall Review: Reports: Weakness - But improved EENTM: Reports: No Symptoms Reported Respiratory: Reports: Cough, Wheezing Cardiac: Reports: No Symptoms Reported Abdominal: Reports: No Symptoms Reported Genitourinary Symptoms: Reports: No Symptoms Reported Musculoskeletal Complaints: Reports: No Symptoms Reported Neurological: Reports: No Symptoms Reported Skin: Reports: No Symptoms Reported Endocrine: Reports: No Symptoms Reported Misc: All systems neg except as marked - Vitals Vitals: Last Vital Signs Temp 36.8 C 10/10/18 08:05 Pulse 94 10/10/18 10:25 Resp 30 H 10/10/18 10:25 BP 140/72 10/10/18 10:05 Pulse Ox 99 10/10/18 10:15 - Abnormal Lab Findings Abnormal Lab Findings: Abnormal Lab Results 10/09/18 Range/Units 15:20 Random Glucose 548 H* D (70-110) mg/dL - Exam Constitutional: Present: Alert, Oriented x3, Cooperative, Well developed, Well nourished, No distress ENT Exam: Present: normal ENT inspection, hearing grossly normal, pharynx normal Neck: Present: non-tender, limited range of motion Breasts: Present: Exam deferred Respiratory: Present: chest non-tender, no respiratory distress, rhonchi, wheezing Cardiovascular/Chest: Present: normal peripheral pulses, regular rate, rhythm, no chest tenderness, no edema, no gallop, no JVD, no murmur Abdomen: Present: Normal bowel sounds, soft, nontender, nondistended, no rebound tenderness, no hepatospenomegaly, no masses /Rectal: Present: Exam deferred, External genitalia normal Extremity: Present: normal range of motion, non-tender, normal inspection, no pedal edema, no calf tenderness, normal capillary refill Skin Exam: Present: normal color, warm/dry, no cyanosis Lymphatic: Present: no adenopathy Neurologic: Present: project management intern II-XII nml as tested Appearance: Present: appropriate appearance, impaired insight, impaired recent memory, impaired remote memory Eye contact: Present: cooperative, avoids eye contact Thoughts: Present: no apparent hallucination, incoherent Cauti Physician Documentation - Urinary Catheter Management Urethral (Rice) Urethral Indwelling: Yes Date of Insertion: 10/09/18 Time of Insertion: 02:21 Assessment/Plan - Problems/Diagnosis (1) Severe sepsis Problem: Acute (2) SIRS (systemic inflammatory response syndrome) Problem: Acute (3) Pneumonia Problem: Acute Qualifiers: Pneumonia type: due to unspecified organism Laterality: bilateral Lung location: unspecified part of lung Qualified Code(s): J18.9 - Pneumonia, unspecified organism (4) Alzheimer's dementia Problem: Chronic (5) Diabetes mellitus Problem: Chronic Qualifiers: Diabetes mellitus type: type 2 Diabetes mellitus analysis analyst insulin use: with residential use Chronic kidney disease stage: stage 3 (moderate)
[2018-10-10] MEDS ORDERED: DEXTROSE 50%-WATER 50 ML SYRG IV ONE (17:23)
[2018-10-10] MEDS: PANTOPRAZOLE SODIUM 40 MG TABLET.EC PO SCH (17:56)
[2018-10-10] MEDS: ENOXAPARIN SODIUM 40 MG/0.4 ML SYRG SC SCH (20:21)
[2018-10-11] MEDS: PIPERACILLIN SODIUM/TAZOBACTAM 3.375 GM in DEXTROSE 5 % IN WATER 100 ML IV SCH ×4 (02:38→11:09)
[2018-10-11 06:25] LABS: Hematocrit 38.2 % (37.0-47.0); Hemoglobin 11.9 gm/dL (12.5-16.0); Mean Cell Volume 89.5 fl (78-100); Mean Corpuscular Hemoglobin 27.9 pg (27-31); Mean Corpuscular Hgb Conc 31.2 g/dl (32-36); Mean Platelet Volume 10.3 fl (8-12.5); Neutrophil # 6.4 K/mm3 (1.3-6.0); Platelet Count 378 K/mm3 (150-450); Red Blood Count 4.27 M/mm3 (4.2-5.4); Red Cell Distribution Width 14.4 % (11.5-14.0); White Blood Count 10.2 K/mm3 (4.0-10.5)
[2018-10-11] MEDS: ALBUTEROL SULFATE 2.5 MG/0.5 ML VIAL.NEB IH SCH ×3 (06:33→10:01)
[2018-10-11 06:39] LABS: Albumin * 2.7 gm/dl (3.4-5.0); Anion Gap 12.3 mmol/L (6.8-13.8); BUN/Creatinine Ratio 32.1 (9.0-21.6); Bilirubin, Total 0.5 mg/dL (0.0-1.1); Ca. Corrected For Albumin 9.6 mg/dL (8.4-10.2); Calcium * 8.9 mg/dL (7.9-10.9); Carbon Dioxide 26.2 mmol/L (24-32.6); Potassium 3.5 mmol/L (3.4-4.6); Total Protein 6.8 gm/dL (6.2-8.2)
[2018-10-11] MEDS: LEVOTHYROXINE SODIUM 50 MCG TABLET PO SCH (06:39)
[2018-10-11] MEDS: POLYETHYLENE GLYCOL 3350 17 GM PACKET PO SCH (08:49)
[2018-10-11] MEDS: INSULIN DETEMIR 100 UNITS/ML VIAL SC SCH (08:56)
[2018-10-11] MEDS: INSULIN LISPRO 100 UNITS/ML VIAL SC SCH ×2 (08:56→12:39)
--- NOTE | 2018-10-11 11:27 | DS ---
(1) Severe sepsis Problem: Resolved (2) SIRS (systemic inflammatory response syndrome) Problem: Resolved (3) Pneumonia Problem: Acute Qualifiers: Pneumonia type: due to unspecified organism Laterality: bilateral Lung location: unspecified part of lung Qualified Code(s): J18.9 - Pneumonia, unspecified organism (4) Alzheimer's dementia Problem: Chronic (5) Diabetes mellitus Problem: Chronic Qualifiers: Diabetes mellitus type: type 2 Diabetes mellitus termite treater helper insulin use: with termite treater helper use Chronic kidney disease stage: stage 3 (moderate) Description of Stay: Paz ahumada is 88-year-old female who is admitted from [facility] through the emergency room diagnosis of pneumonia and severe sepsis. She is starting having symptoms 2 days earlier and I started treatment at the correction that treatment there failed and she continued to worsen. She was brought to the emergency room met sepsis answers criteria subsequently admitted. She was very ill on admission and wasn't sure if she would survive but she has done better since the first day. Her blood sugars were extremely high and she has been long-standing insulin-dependent diabetic. Blood sugars were over 500. Because she was not eating or drinking adequately and initially I reduced her basal and mealtime insulins sign. That with the sepsis blood sugars remain very high. At one point and I gave her 20 units of Humalog which lowered her blood sugar about 200 points from 575-375 approximately. I then gave her another 20 units and it dropped her blood sugar 249. We gave her half of an amp of 50% glucose and blood sugars were back In the 300s. She had another drop in blood sugar to 29 yesterday morning and was given another half an amp of 50% glucose and her blood sugars went up into the 275 range and she has not had any lows since that time. She is not eating and drinking better as well and the infection is well under control. Her lactic acid has responded to therapy to return to normal. She continues to have a loose sounding cough but there is no evidence of active infection now. Her disposition is improved her prognosis is guarded. Procedures Performed: none Results and Findings: Pending Mircobiology Results 10/08/18 17:55 Blood Blood Culture - Preliminary NO GROWTH AFTER 48 HOURS 10/08/18 17:30 Blood Blood Culture - Preliminary NO GROWTH AFTER 48 HOURS Lab Pending Results 10/08/18 17:30: WBC 15.7 H, RBC 4.14 L, Hgb 11.8 L, Hct 37.6, MCV 90.8, MCH 28.5, MCHC 31.4 L, RDW 14.3 H, Plt Count 331, MPV 10.1, Immature Gran % (Auto) 0.40, Immature Gran # (Auto) 0.07 H, Neutrophils % 82.1 H, Lymphocytes % 10.9 L, Monocytes % 6.4, Eosinophils % 0.0, Basophils % 0.2, Nucleated RBC % 0.0, Neutrophils # 12.9 H, Lymphocytes # 1.71, Monocytes # 1.0, Eosinophils # 0.0, Absolute Basophils 0.0 10/08/18 17:30: Sodium 142, Plasma Sodium 143 H, Potassium 4.0, Chloride 104, Carbon Dioxide 24.8, Anion Gap 17.2 H, BUN 37 H D, Creatinine 1.34 D, Est GFR (Non-Af Amer) 40 L D, BUN/Creatinine Ratio 27.6 H, Random Glucose 151 H, Calcium 8.9, Calcium Adj for Albumin 9.2, Total Bilirubin 0.3, AST 49 H, ALT 24, Alkaline Phosphatase 114, Troponin I 0.043, B-Natriuretic Peptide 5523 H, Total Protein 7.4, Albumin 3.2 L 10/08/18 17:30: Lactic Acid, Venous 3.4 H* 10/08/18 17:33: Influenza Type A Ag Negative, Influenza Type B Ag Negative 10/08/18 20:40: Lactic Acid, Venous 3.2 H* 10/09/18 00:40: Lactic Acid, Venous 4.3 H* 10/09/18 01:05: pCO2 26.5 L, pO2 54.9 L, HCO3 18.1 L, Total CO2 18.9 L, Base Excess -4.5 L, ABG pH 7.40, ABG O2 Sat (Measured) 90.6 L 10/09/18 02:05: Random Glucose 239 H D 10/09/18 03:30: Urine Color Yellow, Urine Appearance Cloudy, Urine pH 6.0, Ur Specific Pfeifer 1.015, Urine Protein Negative, Urine Glucose (UA) 100 H, Urine Ketones Negative, Urine Blood 50 H, Urine Nitrate Positive H, Urine Bilirubin Negative, Urine Urobilinogen Normal, Ur Leukocyte Esterase 100 H, Urine RBC 5-10 H, Urine WBC 10-25 H, Ur Epithelial Cells 0-5, Amorphous Sediment Moderate - 2+ H, Urine Bacteria 3+ H, Urine Culture Comments Culture to follow 10/09/18 06:15: WBC 10.9 H D, RBC 4.11 L, Hgb 11.5 L, Hct 37.7, MCV 91.7, MCH 28.0, MCHC 30.5 L, RDW 14.5 H, Plt Count 271, MPV 10.5, Immature Gran % (Auto) 0.40, Immature Gran # (Auto) 0.04 H, Neutrophils % 79.4 H, Lymphocytes % 10.6 L, Monocytes % 9.4 H, Eosinophils % 0.0, Basophils % 0.2, Nucleated RBC % 0.0, Neutrophils # 8.7 H, Lymphocytes # 1.16 L, Monocytes # 1.0, Eosinophils # 0.0, Absolute Basophils 0.0 10/09/18 06:15: Sodium 140, Plasma Sodium 142, Potassium 4.1, Chloride 105, Carbon Dioxide 24.2, Anion Gap 14.9 H, BUN 38 H, Creatinine 1.42 H, Est GFR (Non-Af Amer) 37 L, BUN/Creatinine Ratio 26.8 H, Random Glucose 218 H, Calcium 9.0, Calcium Adj for Albumin 9.5, Total Bilirubin 0.4, AST 60 H, ALT 22, Alkaline Phosphatase 101, Total Protein 7.2, Albumin 3.0 L 10/09/18 06:15: Procalcitonin 1.65 H 10/09/18 06:15: Lactic Acid, Venous 1.3 10/09/18 15:20: Random Glucose 548 H* D 10/10/18 14:47: Lactic Acid, Venous 2.0 10/10/18 17:33: Random Glucose 191 H D 10/11/18 06:00: WBC 10.2, RBC 4.27, Hgb 11.9 L, Hct 38.2, MCV 89.5, MCH 27.9, MCHC 31.2 L, RDW 14.4 H, Plt Count 378, MPV 10.3, Immature Gran % (Auto) 0.50 H, Immature Gran # (Auto) 0.05 H, Neutrophils % 63.0, Lymphocytes % 29.6, Monocytes % 6.2, Eosinophils % 0.2, Basophils % 0.5, Nucleated RBC % 0.0, Neutrophils # 6.4 H, Lymphocytes # 3.01, Monocytes # 0.6, Eosinophils # 0.0, Absolute Basophils 0.1 10/11/18 06:15: Sodium 142, Plasma Sodium 143 H, Potassium 3.5, Chloride 107 H, Carbon Dioxide 26.2, Anion Gap 12.3, BUN 35 H, Creatinine 1.09, Est GFR (Non-Af Amer) 51 L D, BUN/Creatinine Ratio 32.1 H, Random Glucose 138 H, Calcium 8.9, Calcium Adj for Albumin 9.6, Total Bilirubin 0.5, AST 48, ALT 33, Alkaline Phosphatase 87, Total Protein 6.8, Albumin 2.7 L 10/11/18 06:15: Lactic Acid, Venous 1.1 Discharge Location: [facility] Disposition: Intermediate Care Facility ICF Condition: Fair Face to Face Encounter completed per CMS Guidelines: No Level of Care: ICF Discharge Activity: Activity as tolerated Discharge Diet: Consistent carbs Referrals: Chip Clayton DO [Primary Care Provider] - Complete Home Medications List: Complete Home Medication List: Furosemide [Lasix] 80 mg PO DAILY #1 tab 01/31/15 Polyethylene Glycol 3350 [Miralax] 17 gm PO DAILY #0 01/31/15 Glucagon,Human Recombinant [Glucagen] 1 mg IJ PRN PRN 05/04/15 acetaminophen 325 mg tablet 650 mg PO QID PRN tab 01/20/18 levothyroxine 50 mcg capsule 50 mcg PO DAILY 01/20/18 potassium chloride ER 10 mEq tablet,extended release(part/cryst) 10 meq PO BID 01/20/18 Albuterol Sulfate [Albuterol Sulfate 2.5 MG/0.5ML] 2.5 mg INHALATION QID 10/08/18 Cefuroxime Axetil [Cefuroxime] 500 mg PO BID 10/08/18 Insulin Aspart [Novolog] 8 units SC TIDWM 10/08/18 Insulin Detemir [Levemir] 13 units SC BID 10/08/18 Magnesium Hydroxide [Milk Of Magnesia] 30 ml PO DAILY PRN 10/08/18 Menthol [Biofreeze] 1 appl TOPICAL DAILY PRN 10/08/18 Pantoprazole Sodium 40 mg PO 1700 10/08/18
[2018-10-11] MEDS ORDERED: ALGIN PO SCH (13:00)
[2018-10-11] MEDS ORDERED: MAG CARB PO SCH (13:00)
[2018-10-11] MEDS ORDERED: ALUMINUM HYDROX PO SCH (13:00)
[2018-10-11 14:27] VITALS: BP 98/60
== END 2018-10-11 14:47 | DRG 193 ==
LOC: ER 17:08 → MS 17:54
PROVIDERS: ADMIT Family Medicine; ATTEND Family Medicine
DX: R65.10 Systemic inflammatory response syndrome (SIRS) of non-infectious origin without acute organ dysfunction; I50.9 Heart failure, unspecified; G30.9 Alzheimer's disease, unspecified; Z79.4 Long term (current) use of insulin; F02.80 Dementia in other diseases classified elsewhere, unspecified severity, without behavioral disturbance, psychotic disturbance, mood disturbance, and anxiety; E11.9 Type 2 diabetes mellitus without complications; R65.20 Severe sepsis without septic shock; J18.9 Pneumonia, unspecified organism; A41.9 Sepsis, unspecified organism; F05 Delirium due to known physiological condition
CPT/HCPCS: 36415; 36600; 71010; 71045; 80053; 81001; 82803; 82947; 83519; 83605; 83880; 84145; 84484; 85025; 87040; 87081; 87086; 87400; 87449; 93005; 94640; 94664; 99285

== ENCOUNTER 2018-10-22 01:23 | Observation (INO) ==
--- NOTE | 2018-10-22 01:49 | ERNOTE ---
Medical Problem HPI - General Chief Complaint: General Assessment Time Seen by Provider: 10/22/18 01:25 Source: EMS Exam Limitations: clinical condition - Immun/Allergies/Home Medications Immunizations: IMMUNIZATION HX Immunizations Up to Date Yes History of Influenza Vaccine Yes Hx Pneumococcal Vaccination Yes Allergies/Adverse Reactions: Allergies No Known Allergies Allergy (Verified 10/22/18 02:24) per prison sheets Home Medications: HOME MEDICATIONS Furosemide [Lasix] 80 mg PO DAILY #1 tab 01/31/15 [Last Taken 10/21/18 07:00] Polyethylene Glycol 3350 [Miralax] 17 gm PO DAILY #0 01/31/15 [Last Taken 07:00] Glucagon,Human Recombinant [Glucagen] 1 mg IJ PRN PRN 05/04/15 [Last Taken Unknown] acetaminophen 325 mg tablet 650 mg PO QID PRN tab 01/20/18 [Last Taken Unknown] levothyroxine 50 mcg capsule 50 mcg PO DAILY 01/20/18 [Last Taken 10/21/18 07:00] potassium chloride ER 10 mEq tablet,extended release(part/cryst) 10 meq PO BID 01/20/18 [Last Taken 10/21/18 17:00] Albuterol Sulfate [Albuterol Sulfate 2.5 MG/0.5ML] 2.5 mg INHALATION QID 10/08/18 [Last Taken 10/21/18 19:00] Cefuroxime Axetil [Cefuroxime] 500 mg PO BID 10/08/18 [Last Taken 10/21/18 19:30] Insulin Aspart [Novolog] 8 units SC TIDWM 10/08/18 [Last Taken 10/21/18 17:00] Insulin Detemir [Levemir] 13 units SC BID 10/08/18 [Last Taken 10/21/18 19:00] Menthol [Biofreeze] 1 appl TOPICAL DAILY PRN 10/08/18 [Last Taken Unknown] Omeprazole 40 mg PO DAILY 10/22/18 [Last Taken 10/21/18 16:00] - History of Present History Narrative: Pt brought from [facility] with fever and depressed respiratory effort. EMS stated that the patient was having apnea of 5-10 seconds while in transit. Timing: getting worse Severity: moderate Review of Systems - Narrative Narrative: LA states pt vomited just prior to respiratory difficulty No further ROS available due to pt MS. Medical History (Updated 10/22/18 @ 04:44 by Salo Choi DO) Essential hypertension (Chronic) Onset Date: Unknown Difficulty in walking (Acute) Onset Date: Unknown Anxiety (Chronic) Onset Date: Unknown Alzheimer disease (Chronic) Onset Date: Unknown Depression (Chronic) Onset Date: Unknown Hypokalemia (Chronic) Onset Date: Unknown Hyperlipidemia due to dietary fat intake (Chronic) Onset Date: Unknown COPD (chronic obstructive pulmonary disease) Chronic systolic (congestive) heart failure Hx of falling Type 2 diabetes mellitus Chronic GERD Onset Date: Unknown Dementia Onset Date: Unknown Major depressive disorder Onset Date: Unknown Osteochondropathy Onset Date: Unknown Surgical History: Surgical History (Updated 10/22/18 @ 02:24 by Shonna Isabel RN) Surgical history unknown Family History: Family History (Updated 10/08/18 @ 19:44 by Christa Muñoz RN) Other Unknown family medical history Social History: Preferred Language Kiswahili Smoking Status Never smoker Abuse History No History of abuse Psych History No pertinent hx (Last Updated 10/20/18 @ 16:36 by Lakeisha Hart DPM) No Social History Section defined Physical Exam - Physical Exam General Appearance: Present: wd/wn, lethargic Head Exam: Present: normal inspection, no evidence of injury Ears, Nose, Throat: Present: dry mucous membranes Neck: Present: normal inspection Respiratory: Present: rhonchi Cardiovascular/Chest: Present: regular rate, rhythm Gastrointestinal/Abdominal: Present: normal bowel sounds, nondistended, soft Back Exam: Present: decreased range of motion, other - increased kyphosis Extremity Exam: Present: decreased range of motion Neurological Exam: Present: other - responsive to pain Skin Exam: Present: normal color Lymphatic Exam: Present: no adenopathy Progress - Results and Orders Patient's Lab Results:: I have reviewed the patient's lab results. Results and Orders: Laboratory Tests 10/22/18 01:55 Sodium 135 Potassium 5.1 H D Chloride 102 BUN 26 H Creatinine 1.22 Random Glucose 260 H Calcium 9.0 AST 15 ALT 14 L Alkaline Phosphatase 110 B-Natriuretic Peptide 796 H Total Protein 7.0 Albumin 2.9 L - Vital Signs Patient's Vital Signs:: I have reviewed the patient's vital signs. Vital Signs: Vital Signs 10/22/18 01:27 Temperature 36.2 C Pulse Rate 68 Respiratory Rate 18 Blood Pressure 82/22 L O2 Sat by Pulse Oximetry 100 - X-Ray X-Ray #1 X-Ray: chest Interpretation: Interp. by me X-ray Comments: mild pulmonary vascular congestion on the right , no tonya edema or infiltrate. No specific evidence for aspiration - Progress/Reassessment Chief Complaint: General Assessment Progress:: Improved Progress Note-Subjective: 10/22/18 04:36 Pt's respiratory status has greatly improved but she is still not responsive to even pain. Spoke with Dr. Concepcion and he agrees with obs admission. Departure Clinical Impression: Acute alteration in mental status, Respiratory abnormality - Departure Disposition: Still a patient Condition: Fair
[2018-10-22 02:01] LABS: Hematocrit 37.2 % (37.0-47.0); Hemoglobin 11.5 gm/dL (12.5-16.0); Mean Cell Volume 90.7 fl (78-100); Mean Corpuscular Hgb Conc 30.9 g/dl (32-36); Mean Platelet Volume 9.9 fl (8-12.5); Neutrophil # 10.1 K/mm3 (1.3-6.0); Neutrophil % 84.9 % (42-75.0); Platelet Count 466 K/mm3 (150-450); Red Cell Distribution Width 14.6 % (11.5-14.0); White Blood Count 11.9 K/mm3 (4.0-10.5)
[2018-10-22 02:22] LABS: Albumin * 2.9 gm/dl (3.4-5.0); Anion Gap 12.9 mmol/L (6.8-13.8); BUN/Creatinine Ratio 21.3 (9.0-21.6); Bilirubin, Total 0.3 mg/dL (0.0-1.1); Ca. Corrected For Albumin 9.6 mg/dL (8.4-10.2); Carbon Dioxide 25.2 mmol/L (24-32.6); Potassium 5.1 mmol/L (3.4-4.6)
[2018-10-22] MEDS ORDERED: ONDANSETRON HCL/PF 2 MG/ML VIAL ONE (02:41)
[2018-10-22] MEDS ORDERED: ONDANSETRON HCL/PF 2 MG/ML VIAL IV ONE (02:42)
[2018-10-22] MEDS: DEXTROSE 5%-0.5 NORMAL SALINE 1,000 ML IV PRN ×2 (10:47→23:41)
[2018-10-22] MEDS ORDERED: ONDANSETRON HCL/PF 2 MG/ML VIAL IV PRN (15:50)
[2018-10-22] MEDS ORDERED: guaiFENesin 100 MG/5 ML BTL PO PRN (15:50)
[2018-10-22] MEDS ORDERED: SCOPOLAMINE HYDROBROMIDE 1.5 MG PATC TD SCH (16:00)
[2018-10-22] MEDS: ATROPINE SULFATE 50 DROP BTL SL PRN ×4 (16:22→23:36)
[2018-10-22] MEDS ORDERED: ALBUTEROL SULFATE 2.5 MG/0.5 ML VIAL.NEB IH PRN (17:28)
[2018-10-22] MEDS ORDERED: ALBUTEROL SULFATE 2.5 MG/0.5 ML VIAL.NEB IH SCH (19:00)
[2018-10-22] MEDS: ACETAMINOPHEN 650 MG SUPP.RECT RC PRN (20:25)
[2018-10-23] MEDS: ATROPINE SULFATE 50 DROP BTL SL PRN ×3 (02:19→10:45)
[2018-10-23] MEDS: ACETAMINOPHEN 650 MG SUPP.RECT RC PRN ×4 (02:24→16:04)
[2018-10-23] MEDS: MORPHINE SULFATE 2 MG/ML DISP.SYRIN IV PRN ×3 (13:13→21:53)
[2018-10-23] MEDS ORDERED: HALOPERIDOL LACTATE 2 MG/ML BTL PO PRN (13:25)
[2018-10-23] MEDS ORDERED: ATROPINE SULFATE 150 DROP BTL SL SCH (13:30)
[2018-10-23] MEDS: ATROPINE SULFATE 50 DROP BTL SL SCH ×3 (13:42→21:53)
--- NOTE | 2018-10-23 15:35 | HP ---
Chief Complaint - Chief Complaint Date of Service: 10/22/18 Time of Service: 11:00 Chief Complaint: Unresponsive History of Present Illness: Sabrina is an 88 yo female with dementia who at baseline is reported to be unable to feed herself at the [place] [facility]. She reportedly had a choking episode at the [place] [facility] but then became unresponsive. She was brought to [facility] ER in an unresponsive state and with noted episodes of apnea. Bloodwork was obtained and a chest xray was performed. Sabrina had overall normal vitals with the exception of slow respiratory rate and apnea. Medical History (Updated 10/23/18 @ 15:54 by Josie Carson MD) Essential hypertension (Chronic) Onset Date: Unknown Difficulty in walking (Acute) Onset Date: Unknown Anxiety (Chronic) Onset Date: Unknown Alzheimer disease (Chronic) Onset Date: Unknown Depression (Chronic) Onset Date: Unknown Hypokalemia (Chronic) Onset Date: Unknown Hyperlipidemia due to dietary fat intake (Chronic) Onset Date: Unknown COPD (chronic obstructive pulmonary disease) Chronic systolic (congestive) heart failure Hx of falling Type 2 diabetes mellitus Chronic GERD Onset Date: Unknown Dementia Onset Date: Unknown Major depressive disorder Onset Date: Unknown Osteochondropathy Onset Date: Unknown Surgical History: Surgical History (Updated 10/22/18 @ 02:24 by Shonna Isabel RN) Surgical history unknown Family History: Family History (Updated 10/08/18 @ 19:44 by Christa Muñoz RN) Other Unknown family medical history Social History: Patient Lives/Resources [facility] Utilized Preferred Language Maltese Do you have any methodist or No cultural preference? Smoking Status Never smoker Have you smoked in the past 12 No months Do you dip or chew tobacco No Abuse History No History of abuse Psych History No pertinent hx (Last Updated 10/20/18 @ 16:36 by Lakeisha Hart DPM) No Social History Section defined Review Of Systems (GEN) - Review of Systems Additional Comments: Unable to obtain ROS due to condition Immunizations: IMMUNIZATION HX Immunizations Up to Date Yes History of Influenza Vaccine Yes Hx Pneumococcal Vaccination Yes Allergies/Adverse Reactions: Allergies Allergy/AdvReac Type Severity Reaction Status Date / Time No Known Allergies Allergy Verified 10/22/18 02:24 Home Medications: HOME MEDICATIONS Furosemide [Lasix] 80 mg PO DAILY #1 tab 01/31/15 [Last Taken 10/21/18 07:00] Polyethylene Glycol 3350 [Miralax] 17 gm PO DAILY #0 01/31/15 [Last Taken 10/21/18 07:00] Glucagon,Human Recombinant [Glucagen] 1 mg IJ PRN PRN 05/04/15 [Last Taken Unknown] acetaminophen 325 mg tablet 650 mg PO QID PRN tab 01/20/18 [Last Taken Unknown] levothyroxine 50 mcg capsule 50 mcg PO DAILY 01/20/18 [Last Taken 10/21/18 07:00] potassium chloride ER 10 mEq tablet,extended release(part/cryst) 10 meq PO BID 01/20/18 [Last Taken 10/21/18 17:00] Albuterol Sulfate [Albuterol Sulfate 2.5 MG/0.5ML] 2.5 mg INHALATION QID 10/08/18 [Last Taken 10/21/18 19:00] Cefuroxime Axetil [Cefuroxime] 500 mg PO BID 10/08/18 [Last Taken 10/21/18 19:30] Insulin Aspart [Novolog] 8 units SC TIDWM 10/08/18 [Last Taken 10/21/18 17:00] Insulin Detemir [Levemir] 13 units SC BID 10/08/18 [Last Taken 10/21/18 19:00] Menthol [Biofreeze] 1 appl TOPICAL DAILY PRN 10/08/18 [Last Taken Unknown] Omeprazole 40 mg PO DAILY 10/22/18 [Last Taken 10/21/18 16:00] Exam - Exam Vital Signs: Vital Signs - Last Taken Temp 39.8 C H 10/23/18 12:00 Pulse 113 H 10/23/18 12:00 Resp 9 L 10/23/18 12:00 BP 94/66 10/23/18 12:00 Pulse Ox 62 L 10/23/18 12:00 Constitutional: Present: Obtunded Eye Exam: bilateral eye: abnormal pupil - pinpoint Respiratory: Present: lungs clear, other - Decreased rate with apnea Cardiovascular/Chest: Present: regular rate, rhythm, no murmur Peripheral Pulses: dorsalis-pedis (R): 2+, dorsalis-pedis (L): 2+ Abdomen: Present: Normal bowel sounds, soft, no hepatospenomegaly Extremity: Present: normal inspection Diagnostic Studies: Microbiology 10/22/18 07:50 - Final Nares MRSA Negative Laboratory Results WBC 11.9 K/mm3 (4.0-10.5) H 10/22/18 01:55 RBC 4.10 M/mm3 (4.2-5.4) L 10/22/18 01:55 Hgb 11.5 gm/dL (12.5-16.0) L 10/22/18 01:55 Hct 37.2 % (37.0-47.0) 10/22/18 01:55 MCV 90.7 fl (78-100) 10/22/18 01:55 MCH 28.0 pg (27-31) 10/22/18 01:55 MCHC 30.9 g/dl (32-36) L 10/22/18 01:55 RDW 14.6 % (11.5-14.0) H 10/22/18 01:55 Plt Count 466 K/mm3 (150-450) H 10/22/18 01:55 MPV 9.9 fl (8-12.5) 10/22/18 01:55 Immature Gran % (Auto) 0.40 % (0.001-0.429) 10/22/18 01:55 Immature Gran # (Auto) 0.05 K/mm3 (0.000-0.0310) H 10/22/18 01:55 84.9 % (42-75.0) H 10/22/18 01:55 8.9 % (20-51) L 10/22/18 01:55 4.6 % (0.0-9) 10/22/18 01:55 0.8 % (0.0-3.0) 10/22/18 01:55 0.4 % (0.0-1.0) 10/22/18 01:55 Nucleated RBC % 0.0 k/mm3 (0-1) 10/22/18 01:55 10.1 K/mm3 (1.3-6.0) H 10/22/18 01:55 1.06 k/mm3 (1.5-3.5) L 10/22/18 01:55 0.6 k/mm3 (0.0-1.0) 10/22/18 01:55 0.1 k/mm3 (0.0-0.7) 10/22/18 01:55 Absolute Basophils 0.1 k/mm3 (0.0-0.1) 10/22/18 01:55 Sodium 135 mmol/L (132-142) 10/22/18 01:55 138 mmol/L (130-142) 10/22/18 01:55 Potassium 5.1 mmol/L (3.4-4.6) H D 10/22/18 01:55 Chloride 102 mmol/L (97-106) 10/22/18 01:55 Carbon Dioxide 25.2 mmol/L (24-32.6) 10/22/18 01:55 12.9 mmol/L (6.8-13.8) 10/22/18 01:55 BUN 26 mg/dL (3-23) H 10/22/18 01:55 1.22 mg/dL (0.4-1.4) 10/22/18 01:55 Est GFR (Non-Af Amer) 44 mL/min (60-130) L 10/22/18 01:55 21.3 (9.0-21.6) 10/22/18 01:55 260 mg/dL (70-110) H 10/22/18 01:55 Calcium 9.0 mg/dL (7.9-10.9) 10/22/18 01:55 Calcium Adj for Albumin 9.6 mg/dL (8.4-10.2) 10/22/18 01:55 0.3 mg/dL (0.0-1.1) 10/22/18 01:55 AST 15 U/L (0-48) 10/22/18 01:55 ALT 14 U/L (19-67) L 10/22/18 01:55 110 U/L (50-170) 10/22/18 01:55 B-Natriuretic Peptide 796 pg/mL (5-550) H 10/22/18 01:55 7.0 gm/dL (6.2-8.2) 10/22/18 01:55 2.9 gm/dl (3.4-5.0) L 10/22/18 01:55 Assessment/Plan - Narrative Narrative: Sabrina is an 88 yo female with alzheimer's dementia. She has had a significant decrease in function and is now unresponsive. Her prior baseline was poor. She is DNR but considering her recent change in condition will discuss with family comfort care. I had this discussion with family who agree with making sure she is comfortable. I will give IV fluids at this time as she is unable to take fluids in her current condition. Blood pressure and vitals are overall normal with the exception of apnea and decreased respiratory rate. If she does not improve in the next 24 hours the family felt they would likely choose to stop fluids. Regardless of how her condition improves over the next 24 hours, her overal prognosis is extremely poor and I believe she qualifies for hospice due to end stage alzheimer's dementia. I believe she has less than 6 months life expectancy and if she does not improve from her current condition I believe her life expectancy is days. - Assessment/Plan (1) Alzheimer's dementia Problem: Chronic (2) Acute alteration in mental status Problem: Acute
--- NOTE | 2018-10-23 15:54 | PN ---
Subjective - Date and Time Seen Date: 10/23/18 Time: 10:40 Subjective Narrative: Unresponsive altered mental status, unresponsive. Objective - Review of Systems Generalized/Overall Review: Reports: Fever Respiratory: Reports: Shortness of Breath Misc: All systems neg except as marked - Vitals Vitals: Last Vital Signs Temp 39.8 C H 10/23/18 12:00 Pulse 113 H 10/23/18 12:00 Resp 9 L 10/23/18 12:00 BP 94/66 10/23/18 12:00 Pulse Ox 62 L 10/23/18 12:00 - Exam Constitutional: Present: Cooperative, No distress, Elderly. Absent: Alert, Oriented x3 Neck: Present: supple, trachea midline Respiratory: Present: no accessory muscle use, crackles - Bilateral lung jackson throughout Cardiovascular/Chest: Present: regular rate, rhythm, no edema, no murmur Abdomen: Present: Normal bowel sounds, soft, nontender Extremity: Present: no pedal edema Skin Exam: Present: normal color, warm/dry Appearance: Present: appropriate appearance Eye contact: Absent: good eye contact Assessment/Plan Plan Narrative: 88-year-old female who is on comfort care. She has developed what appears to be flash pulmonary edema with frothy brown foamy material draining from her mouth. The [facility] hospice has been called for hospice admission, however, the hospice nurse stated that she cannot admit the patient due to multiple previous admissions. Her medical records secretary would have to come to see the patient and approve the admission. Her medical records secretary Dr. Ivey is out of town and will not be back until Thursday. The patient will remain hospitalized for continued comfort care. The patient's daughter who is her guardian, Maryana, is at bedside and is in agreement with the plan of care. - Problems/Diagnosis (1) Comfort measures only status Problem: Acute
[2018-10-24 01:11] VITALS: BP 0/0
--- NOTE | 2018-10-24 12:35 | DS ---
Discharge Summary - Provider Primary Care Provider: Samy Concepcion Admitting Clinician: Samy Concepcion Attending Physician on Admission: Samy Concepcion - Date and Time Date of : 10/23/18 Time of : 23:05 - Diagnosis/Cause of (1) Comfort measures only status Problems: Acute - Summary Details (narrative): 88-year-old female who is on comfort care. She has developed what appears to be flash pulmonary edema with frothy brown foamy material draining from her mouth. The [facility] hospice has been called for hospice admission, however, the hospice nurse stated that she cannot admit the patient due to multiple previous admissions. Her senior medical billing specialist would have to come to see the patient and approve the admission. Her senior medical billing specialist Dr. Ivey is out of town and will not be back until Thursday. The patient will remain hospitalized for continued comfort care. The patient's daughter who is her guardian, Maryana, is at bedside and is in agreement with the plan of care. The patient at [id number] on October 23, 2017. Procedures Performed: none - Additional Data Confirmation of as documented by pronouncing clinician: no pulse, no heart sounds Was code activated: No Advance Directives: Yes
== END 2018-10-24 00:50 | disposition expired ==
LOC: ER 01:23 → MS 01:23
PROVIDERS: ADMIT Family Medicine; ATTEND Family Medicine
CPT/HCPCS: 36415; 71010; 71045; 80053; 83519; 83880; 85025; 87081; 94760; 96365; 96366; 96372; 96375; 99285; G0378; J2405